=== PATIENT | female | born 1975 | race Caucasian/White ===

== ENCOUNTER 2017-10-31 08:23 | Emergency (ER) | payer BC ==
[2017-10-31] MEDS ORDERED: FENTANYL CITRATE INJ/PF 100 MCG/2 ML AMPUL IV ONE ×2 (09:50→12:30)
[2017-10-31] MEDS ORDERED: NORMAL SALINE 1000 ML 1,000 ML IV ONE (09:50)
--- NOTE | 2017-10-31 10:24 | ER Document Report ---
HPI - HPI Patient complains to provider of: Facial swelling and bruising Onset: Other - 3 days Onset/Duration: Worse Quality of pain: Achy Pain Level: 2 Context: Patient states that she had oral surgery with a gingival graft for receding gums. Patient states that she has been taking ibuprofen until yesterday for pain relief. Patient states that each day she has gradually had increased swelling as well as increase ecchymosis to the face. Patient denies any difficulty breathing or swallowing. Patient states that she had a clot that formed to her gingiva that she removed and that this area continued to bleed all day yesterday until last evening. Patient states she does have a small clot that formed again. Patient denies any fever. Associated Symptoms: Other - Facial pain. denies: Fever Exacerbated by: Denies Relieved by: Denies Similar symptoms previously: No Recently seen / treated by doctor: Yes - ROS ROS below otherwise negative: Yes Systems Reviewed and Negative: Yes All other systems reviewed and negative - CONSTITUTIONAL Constitutional: DENIES: Fever, Chills - EENT Notes: Facial swelling and bruising - NEURO Neurology: DENIES: Headache - GASTROINTESTINAL Gastrointestinal: DENIES: Nausea, Patient vomiting - REPRODUCTIVE Reproductive: DENIES: : - DERM Skin Color: Ecchymosis Past Medical History - General Information source: Patient - Social History Smoking Status: Never Smoker Frequency of alcohol use: None Drug Abuse: None Occupation: self employed Lives with: Spouse/Significant other Family History: Reviewed & Not Pertinent Pulmonary Medical History: Reports: Other - allergies Past Surgical History: Reports: Hx Oral Surgery - Immunizations Hx Diphtheria, Pertussis, Tetanus Vaccination: Yes Vertical Provider Document - CONSTITUTIONAL Agree With Documented VS: Yes Exam Limitations: No Limitations General Appearance: WD/WN, No Apparent Distress - INFECTION CONTROL TRAVEL OUTSIDE OF THE [place] IN LAST 30 DAYS: No - HEENT HEENT: Normocephalic. negative: Pharyngeal Tenderness, Pharyngeal Erythema, Tympanic Membrane Red, Tympanic Membrane Bulging Notes: Marked facial swelling and ecchymosis from infraorbital area bilaterally extending to the mandible. No potential airway compromise. Patient with blood clot to gingiva near tooth #10. Clot covering left upper gingival area to the roof of the mouth. - NECK Neck: Normal Inspection, Supple. negative: Lymphadenopathy-Left, Lymphadenopathy-Right - RESPIRATORY Respiratory: Breath Sounds Normal, No Respiratory Distress - CARDIOVASCULAR Cardiovascular: Regular Rate, Regular Rhythm, No Murmur - BACK Back: Normal Inspection - MUSCULOSKELETAL/EXTREMETIES Musculoskeletal/Extremeties: DENISE POON - NEURO Level of Consciousness: Awake, Alert, Appropriate Motor/Sensory: No Motor Deficit - DERM Integumentary: Warm, Dry. negative: Abscess Notes: marked ecchymosis to face bilaterally extending from infraorbital area to the mandible Course - Re-evaluation Re-evalutation: 10/31/17 10:[address] Garcia regarding patient presentation. Advises consultation with patient's surgeon. Attempted to call the number that patient had provided , message was left for return phone call. 10/31/17 12:31 Consulted with radiologist regarding CT report findings as well as patient's surgical history and physical exam findings. Discussed conversation with Dr. Garcia regarding patient presentation. Advises giving patient clindamycin and having her follow-up with her surgeon. No concern for admission at this time. Patient without any potential airway compromise. Patient nontoxic in appearance. Patient agrees with this discharge plan of care at this time. 10/31/17 Spoke with patient's oral surgeon who was in [place] and unable to answer the phone right away due to the time zone difference. Patient's surgeon advises keeping patient on the steroid as long as there is no contraindications at this time. Does not recommend removing the clot to her gingiva given the concern about continued bleeding. Agrees with plan to start patient on clindamycin. Advises having patient contact him via text for any other issues. - Vital Signs Vital signs: Temp Pulse Resp BP Pulse Ox 98.3 F 53 L 16 144/87 H 100 10/31/17 08:41 10/31/17 08:41 10/31/17 08:41 10/31/17 08:41 10/31/17 08:41 - Laboratory Result Diagrams: 10/31/17 10:12 10/31/17 10:12 Laboratory results interpreted by me: 10/31/17 12:34 Labs- Entire Visit 10/31/17 10/31/17 10/31/17 10:12 10:12 10:12 WBC 11.2 H RBC 4.67 Hgb 14.2 Hct 42.0 MCV 90 MCH 30.4 MCHC 33.8 RDW 13.5 Plt Count 358 Seg Neutrophils % 66.3 Lymphocytes % 26.9 Monocytes % 6.3 Eosinophils % 0.1 Basophils % 0.4 Absolute Neutrophils 7.4 Absolute Lymphocytes 3.0 Absolute Monocytes 0.7 Absolute Eosinophils 0.0 Absolute Basophils 0.0 PT 12.8 INR 0.92 APTT 26.8 Sodium 143.7 Potassium 4.2 Chloride 101 Carbon Dioxide 28 Anion Gap 15 BUN 15 Creatinine 0.73 Est GFR ( Amer) > 60 Est GFR (Non-Af Amer) > 60 Glucose 88 Calcium 10.0 Total Bilirubin 0.5 Direct Bilirubin 0.3 Neonat Total Bilirubin Not Reportable Neonat Direct Bilirubin Not Reportable Neonat Indirect Bili Not Reportable AST 22 ALT 22 Alkaline Phosphatase 81 Total Protein 7.7 Albumin 4.7 - Diagnostic Test Radiology reviewed: Reports reviewed Discharge - Discharge Clinical Impression: Facial cellulitis, Hx of oral surgery Facial bruising Qualifiers: Encounter type: initial encounter Qualified Code(s): S00.83XA - Contusion of other part of head, initial encounter Condition: Stable Disposition: HOME, SELF-CARE Instructions: Cellulitis ([facility]), Clindamycin ([facility]), Oral Narcotic Medication ( [facility]) Additional Instructions: Return immediately for any new or worsening symptoms Followup with your primary care provider, call tomorrow to make a followup appointment Follow-up with your oral surgeon for recheck, call Thursday for an appointment time. Prescriptions: Clindamycin HCl [Cleocin Hcl] 300 mg PO QID #28 capsule Oxycodone HCl/Acetaminophen [Percocet 5-325 mg Tablet] 1 tab PO ASDIR PRN #15 tablet PRN Reason: Referrals: LIZBETH POE I, MALGORZATA [NO LOCAL MD] - Follow up tomorrow
[2017-10-31 10:51] LABS: ABSOLUTE MONOCYTES (AUTO) 0.7 10^3/uL (0.1-1.4); ABSOLUTE NEUT (AUTO) 7.4 10^3/uL (1.7-8.2); BASOPHILS % (AUTO) 0.4 % (0-2); EOSINOPHILS % (AUTO) 0.1 % (0-6); HEMOGLOBIN 14.2 g/dL (12.0-15.5); LYMPHOCYTES % (AUTO) 26.9 % (13-45); MEAN CORPUSCULAR HEMOGLOBIN 30.4 pg (27.0-33.4); MEAN CORPUSCULAR HGB CONC 33.8 g/dL (32.0-36.0); MEAN CORPUSCULAR VOLUME 90 fl (80-97); MONOCYTES % (AUTO) 6.3 % (3-13); PLATELET COUNT 358 10^3/uL (150-450); RED BLOOD COUNT 4.67 10^6/uL (3.72-5.28); RED CELL DISTRIBUTION WIDTH 13.5 % (11.5-14.0); SEGMENTED NEUTROPHILS % (AUTO) 66.3 % (42-78); TOTAL CELLS COUNTED % (AUTO) 100 %; WHITE BLOOD COUNT 11.2 10^3/uL (4.0-10.5)
[2017-10-31 11:00] LABS: INTERNATIONAL RATION (INR) 0.92; PROTHROMBIN TIME 12.8 SEC (11.4-15.4)
[2017-10-31 11:01] LABS: PARTIAL THROMBOPLASTIN TIME 26.8 SEC (23.5-35.8)
[2017-10-31 11:10] LABS: ALANINE AMINOTRANSFERASE 22 U/L (9-52); ALBUMIN 4.7 g/dL (3.5-5.0); ALKALINE PHOSPHATASE 81 U/L (38-126); ANION GAP 15 (5-19); ASPARTATE AMINO TRANSFERASE 22 U/L (14-36); BILIRUBIN,DIRECT 0.3 mg/dL (0.0-0.4); BILIRUBIN,TOTAL 0.5 mg/dL (0.2-1.3); BLOOD UREA NITROGEN 15 mg/dL (7-20); CARBON DIOXIDE 28 mmol/L (22-30); CHLORIDE 101 mmol/L (98-107); GLUCOSE 88 mg/dL (75-110); POTASSIUM 4.2 mmol/L (3.6-5.0); SODIUM 143.7 mmol/L (137-145); TOTAL PROTEIN 7.7 g/dL (6.3-8.2)
[2017-10-31] MEDS ORDERED: CLINDAMYCIN 600 MG/D5W RTU 600 MG/50 ML RTUPB IV ONE (12:13)
--- NOTE | 2017-10-31 12:28 | RADIOLOGY REPORT (SQ) ---
EXAM DESCRIPTION: CT FACIAL AREA WITH COMPLETED DATE/TIME: 10/31/2017 11:44 am REASON FOR STUDY: hx oral surgery, facial swelling COMPARISON: None. TECHNIQUE: Post contrast images through the facial bones and orbits windowed for bone and soft tissu e. Additional coronal and sagittal reconstructed images reviewed. All images stored on PACS. All CT scanners at this facility use dose modulation, iterative reconstruction, and/or weight based d osing when appropriate to reduce radiation dose to as low as reasonably achievable (ALARA). [facility]: Dose Right [facility]: CareDose [facility]: Dose Right [facility]: Teradose 4D [facility]: [id number] CONTRAST TYPE AND DOSE: contrast/concentration: Isovue 370.00 mg/ml; Total Contrast Delivered: 75.0 ml; Total Saline Delivered: 55.0 ml RENAL FUNCTION: Creatinine: 0.73 RADIATION DOSE: CT Rad equipment meets quality standard of care and radiation dose reduction techniq ues were employed. CTDIvol: 30.4 mGy. DLP: 562 mGy-cm. . LIMITATIONS: None. FINDINGS: FACIAL BONES: No fracture or bone lesion. ORBITS: Intact. No fracture. Symmetric intact globes and retroorbital soft tissues. There is evide nce of soft tissue swelling in the right and left infraorbital regions. PARANASAL SINUSES: No abnormality. SOFT TISSUES: There is evidence of anterior soft tissue thickening in both infraorbital regions exten ding inferiorly over the anterior maxilla bilaterally. There is prominent soft tissue thickening not ed over the level of the inferior maxilla and upper lip. A single bubble of air is noted anterior to the inferior right maxillary sinus and right nasal bone within the soft tissues. An evolving inflam matory process in this level cannot be excluded (image number 37/ 66 series 4). Marked soft tissue t hickening of the upper lip and lower lip extending inferiorly anterior to the mandible is noted. Hoyt bcutaneous soft tissue edema noted extending inferiorly adjacent to the platysma on the right and lef t. INFERIOR BRAIN: Limited view. No acute findings. OTHER: Cervical spondylosis C4-6 with degenerative disc disease prominent at C5-6. Small anterior ce rvical nodes are noted. SUBMANDIBULAR GLANDS: No abnormality of right and left submandibular glands and parotid glands. IMPRESSION: 1. There is evidence of soft tissue cellulitis of the infraorbital region, anterior to the inferior maxillary sinuses with soft tissue edema of upper and lower lip extending inferiorly ant erior to the mandible. Adjacent to the right nasal bone and anterior maxilla there is soft tissue noted which could represen t evolving infection. TECHNICAL DOCUMENTATION: JOB ID: [id number] MD-69 Quality ID # [id number]: Final reports with documentation of one or more dose reduction techniques (e.g., Au tomated exposure control, adjustment of the mA and/or kV according to patient size, use of iterative reconstruction technique) 2010 [employer]- All Rights Reserved Reading location - IP/workstation name: [email or web address]
[2017-10-31 14:42] VITALS: BP 140/83
== END 2017-10-31 14:43 | disposition home or self-care (01) ==
LOC: ER 08:23
DX: L03.211 Cellulitis of face (principal); S00.83XA Contusion of other part of head, initial encounter; X58.XXXA Exposure to other specified factors, initial encounter
CPT/HCPCS: 99284; 96361; 96374; 36415; 85025; 85610; 85730; 80053; 70487; J3010; J7030